=== PATIENT | male | born 1985 | race Caucasian/White ===

== ENCOUNTER 2023-09-06 18:38 | Emergency (ER) | payer OTHER ==
[~2023-09-06] VITALS: Ht 180.3 cm; Wt 93.2 kg
[2023-09-06] MEDS ORDERED: SPIR100T3 (18:48)
[2023-09-06] MEDS ORDERED: ESTR1TAB (18:48)
[2023-09-06] MEDS: ONDANSETRON 4MG 2ML VIAL IV ONE (19:51)
[2023-09-06] MEDS: MORPHINE 4 MG/ML 1ML VIAL IV ONE (19:51)
[2023-09-06 20:10] LABS: HEMATOCRIT 36.8 % (42.0-52.0); HEMOGLOBIN 12.6 g/dl (13.5-17.5); MEAN CORPUSCULAR HEMOGLOBIN 29.8 pg (27.0-33.0); MEAN CORPUSCULAR HGB CONC 34.2 g/dl (32.0-36.5); PLATELET COUNT, AUTOMATED 287 10^3/uL (150-450); RED BLOOD COUNT 4.23 10^6/uL (4.30-6.10); WHITE BLOOD COUNT 16.7 10^3/uL (4.0-10.0)
[2023-09-06] MEDS: BOOSTRIX VACCINE (TETANUS/DIPHTH/ACEL. PERTUSSIS) 0.5ML SYR IM ONE (20:18)
[2023-09-06] MEDS: ceFAZolin SOD 2 GM in IV 1 EA IV ONE (20:19)
[2023-09-06] MEDS: LIDOCAINE 2% MDV 20ML VIAL SC ONE (20:40)
[2023-09-06 20:42] LABS: ALBUMIN 4.4 G/DL (3.2-5.2); ALKALINE PHOSPHATASE 65 U/L (46-116); ALT/SGPT 18 U/L (7.0-40); AST/SGOT 17 U/L (<34); BILIRUBIN,TOTAL 0.3 MG/DL (0.3-1.2); BLOOD UREA NITROGEN 19 MG/DL (9-23); CALCIUM LEVEL 9.3 MG/DL (8.5-10.1); CARBON DIOXIDE LEVEL 24 MMOL/L (20-31); CHLORIDE LEVEL 103 MMOL/L (98-107); CREATININE FOR GFR 0.89 MG/DL (0.70-1.30); GLOMERULAR FILTRATION RATE > 60.0 (>60); GLUCOSE, FASTING 114 MG/DL (60-100); SODIUM LEVEL 138 MMOL/L (136-145); TOTAL PROTEIN 6.9 G/DL (5.7-8.2)
[2023-09-06] MEDS ORDERED: CEPH500C PO (21:43)
[2023-09-06] MEDS ORDERED: HYDR-3713 PO (21:43)
[2023-09-06 21:57] VITALS: BP 130/57; TEMP 99.1; O2SAT 98
[2023-09-06] MEDS: NORCO 5/325MG TABLET (HOME DOSE PACK) PO ONE (22:02)
== END 2023-09-06 22:22 | disposition home or self-care (01) ==
LOC: M ED 18:38
DX: S62.317B Displaced fracture of base of fifth metacarpal bone, left hand, initial encounter for open fracture (principal); S06.0X0A Concussion without loss of consciousness, initial encounter; S00.81XA Abrasion of other part of head, initial encounter; M25.562 Pain in left knee; Y92.9 Unspecified place or not applicable; Y93.51 Activity, roller skating (inline) and skateboarding; Y99.9 Unspecified external cause status; W19.XXXA Unspecified fall, initial encounter; Z79.1 Long term (current) use of non-steroidal anti-inflammatories (NSAID); Z79.2 Long term (current) use of antibiotics; Z79.899 Other long term (current) drug therapy; Z23 Encounter for immunization
CPT/HCPCS: 12031; 70450; 70486; 72125; 73090; 73120; 73130; 73564; 80053; 85027; 86850; 86900; 86901; 90471; 90715; 96365; 96374; 99284; J0690; J2405

== ENCOUNTER → 2023-09-13 | Outpatient (CLI) | payer OTHER ==
[~2023-09-13] MED LIST: CEPH500C PO; ESTR1TAB; HYDR-3713 PO; SPIR100T3
== END ==
LOC: M SOG 13:28
PROVIDERS: ATTEND Physician Assistant
DX: S61.412A Laceration without foreign body of left hand, initial encounter (principal)

== ENCOUNTER → 2023-10-16 | Outpatient (CLI) | payer OTHER | LOC: M SOG 08:02 | PROVIDERS: ATTEND Physician Assistant | DX: S61.412A Laceration without foreign body of left hand, initial encounter (principal); X58.XXXA Exposure to other specified factors, initial encounter; Y92.9 Unspecified place or not applicable ==

== ENCOUNTER → 2024-01-04 | Outpatient (REF) | payer OTHER ==
[2024-01-04 23:09] LABS: RSV AMPLIFICATION NEGATIVE (NEGATIVE)
== END ==
LOC: M LAB REF 21:59
PROVIDERS: ATTEND Physician Assistant
DX: B34.9 Viral infection, unspecified (principal)